=== PATIENT | female | born 1970 | race Caucasian/White ===

== ENCOUNTER 2018-11-02 18:55 | Emergency (ER) | payer OTHER ==
[2018-11-02 19:39] VITALS: BP 150/82
--- NOTE | 2018-11-02 19:52 | ED ---
Skin Complaint - HPI Summary HPI Summary: 48 yr old with redness, irritation to the left lower abdomen skin. Onset two days ago. No fever or chills. No drainage. Area started as an area of pimple hair follicle on the patient. Pain is moderate. - History of Current Complaint Chief Complaint: UCSkin Time Seen by Provider: 11/02/18 19:41 Stated Complaint: LEFT SIDE SKIN ISSUE Hx Last Menstrual Period: 07/19/16 Pain Intensity: 7 - Allergy/Home Medications Allergies/Adverse Reactions: Allergies Allergy/AdvReac Type Severity Reaction Status Date / Time environmental and seasonal Allergy Congestion Uncoded 11/02/18 19:31 latex Allergy Hives Uncoded 11/02/18 19:31 Home Medications: Home Medications Albuterol HFA INHALER* [Ventolin HFA Inhaler*] 1 - 2 puff INH Q4H PRN 11/02/18 [ History Confirmed 11/02/18] QUEtiapine TAB* [Seroquel 25 MG TAB*] 25 mg PO TID 11/02/18 [History Confirmed 11/02/18] Venlafaxine HCl 75 mg PO DAILY 11/02/18 [History Confirmed 11/02/18] PMH/Surg Hx/FS Hx/Imm Hx Endocrine/Hematology History: Denies: Hx Diabetes Cardiovascular History: Reports: Hx Hypertension Denies: Hx Pacemaker/ICD Respiratory History: Reports: Hx Chronic Obstructive Pulmonary Disease (COPD) Denies: Hx Asthma Sensory History: Denies: Hx Hearing Aid Psychiatric History: Denies: Hx Panic Disorder - Surgical History Surgery Procedure, Year, and Place: TUBAL LIGATION. breast biopsies Infectious Disease History: No Infectious Disease History: Denies: Hx Clostridium Difficile, Hx Hepatitis, Hx Human Immunodeficiency Virus (HIV), Hx of Known/Suspected MRSA, Hx Shingles, Hx Tuberculosis, Hx Known/ Suspected VRE, Hx Known/Suspected VRSA, History Other Infectious Disease, Traveled Outside the [place] in Last 30 Days - Family History Known Family History: Positive: None - neg for HTN Negative: Hypertension - Social History Occupation: Employed Full-time Alcohol Use: Occasionally Substance Use Type: Reports: Marijuana, Prescribed Smoking Status (MU): Heavy Every Day Tobacco Smoker Type: Cigarettes Amount Used/How Often: 1 ppd Length of Time of Smoking/Using Tobacco: started at age 15 Review of Systems Constitutional: Negative Positive: Rash All Other Systems Reviewed And Are Negative: Yes Physical Exam Triage Information Reviewed: Yes Vital Signs On Initial Exam: Initial Vitals Temp Pulse Resp BP Pulse Ox 99.4 F 89 16 150/82 96 11/02/18 19:35 11/02/18 19:35 11/02/18 19:35 11/02/18 19:35 11/02/18 19:35 Vital Signs Reviewed: Yes Appearance: Positive: Well-Appearing, No Pain Distress Skin: Positive: Warm, Skin Color Reflects Adequate Perfusion, Other - patch of cellulitis, redness with center pimple on lower left quadrant of abdomen. No fluctuance no drainage. Head/Face: Positive: Normal Head/Face Inspection Eyes: Positive: EOMI, FAYE ENT: Positive: Normal ENT inspection, Pharynx normal Neck: Positive: Nontender Respiratory/Lung Sounds: Positive: Clear to Auscultation, Breath Sounds Present Cardiovascular: Positive: RRR. Negative: Murmur Abdomen Description: Positive: Nontender Musculoskeletal: Positive: Strength/ROM Intact Neurological: Positive: Sensory/Motor Intact, Alert, Oriented to Person Place, Time, CN Intact II-III, Normal Gait, Speech Normal Psychiatric: Positive: Normal Diagnostics - Vital Signs Vital Signs Temp Pulse Resp BP Pulse Ox 11/02/18 19:35 99.4 F 89 16 150/82 96 - Laboratory Lab Statement: Any lab studies that have been ordered have been reviewed, and results considered in the medical decision making process. Course/Dx - Course Course Of Treatment: 48 yr old with cellulitis lower left abdominal wall. Rx with Bactrim DS. FU with PMD> - Diagnoses Provider Diagnoses: Hypertension, Cellulitis Discharge - Sign-Out/Discharge Documenting (check all that apply): Patient Departure All imaging exams completed and their final reports reviewed: No Studies - Discharge Plan Condition: Good Disposition: HOME Prescriptions: Sulfamethox/Trimethoprim DS* [Bactrim DS 800/160 TAB*] 1 tab PO BID #20 tab Patient Education Materials: Cellulitis (ED), Hypertension (ED) Referrals: Eileen Mares PA [Primary Care Provider] - 4 Days - Billing Disposition and Condition Condition: GOOD Disposition: Home
== END 2018-11-02 19:59 | disposition home or self-care (01) ==
LOC: UCCORT 18:55
DX: L03.311 Cellulitis of abdominal wall (principal); I10 Essential (primary) hypertension; J44.9 Chronic obstructive pulmonary disease, unspecified; F17.210 Nicotine dependence, cigarettes, uncomplicated; Z91.09 Other allergy status, other than to drugs and biological substances; Z91.040 Latex allergy status
CPT/HCPCS: 99212; G0463

== ENCOUNTER 2019-12-01 08:02 | Emergency (ER) | payer OTHER ==
--- OUTSIDE RECORDS SUMMARY | 2019-12-01 08:07 | XMS REPORT | Continuity of Care Document ---
:1970 External Reference #:[id number] Author Name ASH Brink (transmitted by agent of provider Melinda Mcgarry) Address [address] 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 Social History Type Date Description Comments Sex Unknown Tobacco Use Start: Unknown Heavy tobacco smoker (more than 10 cigarettes/day) Allergies, Adverse Reactions, Alerts Active Allergies Reaction Severity Comments Date NKDA 02/05/2019 Latex Hives 02/05/2019 Seasonal 02/05/2019 Medications Active Medications SIG Qnty Indications Ordering Provider Date Compression Stockings 1Pair I83.892 Syed Espitia 02/05/2019 Wear Daily For 6 Months 20-30MMHG Thigh High Misc Pramipexole Take 1 2 Unknown Dihydrochloride Tablets By 0.25mg Mouth Every Tablets Evening For Leg Cramp Venlafaxine HCL ER Take One Unknown 75mg Caps Capsule By ER 24HR Mouth Every Day Quetiapine Fumarate Take 1 2 Tablet Unknown 25mg By Mouth In The Tablets Morning as Needed And Take One Tablet AT Bedtime Propranolol HCL Unknown 60mg Tablets Hydrocortisone Valerate Apply Thin Unknown 0.2% Layer To Itchy Cream Rash 2 3 Times A Day as Needed Omeprazole Take One Unknown 20mg Capsules DR Capsule By Mouth Every Day Proair HFA prn Unknown 108(90Base) mcg/Act Aerosol Cetirizine HCL Take One Tablet Unknown 10mg Tablets By Mouth Every Evening Methotrexate Take 4 Tablets Unknown 2.5mg Tablets By Mouth Every 7 Days Folic Acid Take One Tablet Unknown 1mg Tablets By Mouth Every Day History Medications Gabapentin take 1 tablet by 1tabs I83.892 Syed Espitia 05/13/2019 - 600mg mouth 1 hour 07/01/2019 Tablets prior to your procedure arrival time Immunizations CPT Code Status Date Vaccine Lot # [id number] Refused 05/13/2019 Influenza Vaccine 11131-009-18 Vital Signs Date Vital Result Comment 10/03/2019 10:05am Height 63 inches 5'3" Weight 146.00 lb BP Systolic 144 mmHg BP Diastolic 88 mmHg BMI (Body Mass Index) 25.9 kg/m2 Heart Rate 70 /min Respiratory Rate 18 /min 08/29/2019 10:43am Height 63 inches 5'3" Weight 146.00 lb BP Systolic 144 mmHg BP Diastolic 82 mmHg BMI (Body Mass Index) 25.9 kg/m2 Heart Rate 75 /min Respiratory Rate 18 /min Results Description No Information Available Procedures Date Code Description Status 10/03/2019 60997 Injection Sclerosing Solution Multiple Veins Same Leg Completed 08/29/2019 91946 Injection Sclerosing Solution Multiple Veins Same Leg Completed 07/01/2019 61139 Duplex Scan Extremity Veins, Unilateral Or Limited Study Completed 06/03/2019 99289 Duplex Scan Extremity Veins, Unilateral Or Limited Study Completed 05/29/2019 42287 Unlisted Procedure, Vascular Surg Completed 05/29/2019 36042 Endovenus Therapy Radiofreq Completed Medical Devices Description No Information Available Encounters Type Date Location Provider Dx Diagnosis Office Visit 05/13/2019 [facility] Syed Espitia I83.892 Varicose veins of l 10:30a low extrem with other complications Z22.322 Carrier or suspected carrier of methicillin resis staph Z68.26 Body mass index (BMI) 26.0-26.9, adult Assessments Date Code Description Provider 10/03/2019 I83.892 Varicose veins of left lower extremity with ASH Brink other complications 10/03/2019 Z68.25 Body mass index (BMI) 25.0-25.9, adult ASH Brink 08/29/2019 I83.892 Varicose veins of left lower extremity with ASH Brink other complicati 08/29/2019 Z68.25 Body mass index (BMI) 25.0-25.9, adult ASH Brink 07/01/2019 I83.892 Varicose veins of left lower extremity with Naty Sedrick, CYLINDER DIE MACHINE HELPER other complicati 07/01/2019 Z68.26 Body mass index (BMI) 26.0-26.9, adult Naty Sedrick, CYLINDER DIE MACHINE HELPER 06/03/2019 I83.892 Varicose veins of left lower extremity with Naty Sedrick, CYLINDER DIE MACHINE HELPER other complicati 06/03/2019 Z22.322 Carrier or suspected carrier of Methicillin Naty Sedrick, CYLINDER DIE MACHINE HELPER resistant Staphylococcus aureus 05/29/2019 I83.892 Varicose veins of left lower extremity with Syed Espitia other complicati 05/29/2019 Z22.322 Carrier or suspected carrier of Methicillin Espitia, Syed resistant Staphylococcus aureus 05/13/2019 I83.892 Varicose veins of left lower extremity with Espitia, Syed other complicati 05/13/2019 Z22.322 Carrier or suspected carrier of Methicillin Espitia, Syed resistant Staphylococcus aureus 05/13/2019 Z68.26 Body mass index (BMI) 26.0-26.9, adult Syed Espitia Plan of Treatment Future Appointment(s):10/31/2019 10:00 am - [facility]ink [facility] Functional Status Description No Information Available Mental Status Description No Information Available Referrals Refer to Dr Reason for Referral Status Appt Date Syed Espitia M.D. LEFT LEG SCLERO Created [address] [place] [address] [address] [place] [address] [phone] Syed Espitia M.D. LEFT LEG SURGERY Created [address] [place] [address] [address] [place], [place] [id number] [phone]
--- OUTSIDE RECORDS SUMMARY | 2019-12-01 08:07 | XMS REPORT | Continuity of Care Document ---
:1970 External Reference #:[id number] Author Name ASH Jordan (transmitted by agent of provider Sandee Linn) Address [address] [place] [address] Care Team Providers Name Role Phone Eileen Mares RPA - Medical Care Team Information Wrapper Operator Vinayak Houston MD - Care Team Information Wrapper Operator [phone] Internal Medicine Katarina Garcia M.D. - Rheumatology Care Team Information Wrapper Operator Problems Active Problems Provider Date Mood disorder Eileen Mares PA Onset: 01/16/2019 Personality disorder Eileen Mares PA Onset: 01/16/2019 Psoriasis Eileen Mares PA Onset: 01/16/2019 Vitamin D deficiency Eileen Mares PA Onset: 01/16/2019 Fibromyalgia Eileen Mares PA Onset: 01/16/2019 Psoriatic arthritis Eileen Mares PA Onset: 10/21/2019 Note: tx 2020 Chronic back pain Eileen Mares PA Onset: 01/16/2019 Note: sacroiliitis Degenerative joint disease involving multiple Eileen Mares PA Onset: 12/2018 joints Note: thumbs, cervical/lumbar, S-I joints, knee Essential tremor Eileen Mares PA Onset: 01/16/2019 Note: neck, upper ext Carpal tunnel syndrome Eileen Mares PA Onset: 01/16/2019 Allergic rhinitis Eileen Mares PA Onset: 01/16/2019 Note: RAST 2005 ( mold, grass) Migraine Eileen Mares PA Onset: 01/16/2019 Note: Botox in past Dysfunctional uterine bleeding ASH Jordan Onset: 01/16/2019 Note: 2018 Gastroesophageal reflux disease Eileen Mares, PA Onset: 01/16/2019 Methicillin resistant Staphylococcus aureus Eileen Mares PA Onset: 01/16 infection Note: groin 2019 Mammography abnormal Eileen Mares PA Onset: 01/14/2019 Note: dense breasts, microcalcifications Uterine leiomyoma Eileen Mares, PA Onset: 01/14/2019 Note: u/s 2018 Cigarette smoker Eileen Mares PA Onset: 04/16/2019 Varicose veins of lower extremity Eileen Mares, PA Onset: 05/28/2019 Essential hypertension Eileen Mares PA Onset: 07/24/2019 Social History Type Date Description Comments Sex Unknown Tobacco Use Start: Unknown Since ~26 yrs old ETOH Use Current Alcohol Use Socially on weekends Tobacco Use Start: Unknown Heavy tobacco smoker (more About 1ppd than 10 cigarettes/day) Smoking Status Reviewed: 10/31/19 Heavy tobacco smoker (more About 1ppd than 10 cigarettes/day) Exercise Type/Frequency Does not exercise Allergies, Adverse Reactions, Alerts Active Allergies Reaction Severity Comments Date Latex Itching 01/14/2019 Morphine Itching 01/14/2019 Varenicline Tartrate nightmares and sweating 01/14/2019 Gabapentin stomaches 01/14/2019 Buprenorphine Itching Due To Adhesive 01/14/2019 Bactrim Nausea 01/14/2019 Medications Active Medications SIG Qnty Indications Ordering Date Provider Penicillin V Potassium 1 tab by mouth 30tabs K02.9 Corona 10/31/2019 three times a day MD Alden 500mg Tablets Methotrexate 8 tablets by Celso, 09/18/2019 2.5mg mouth once per MD Vinayak Tablets week Folic Acid 1 by mouth every Sprague-Karuna, 09/18/2019 1mg Tablets day MD Vinayak Incruse Ellipta 1 inhalation 90units J44.9 Corona 07/24/2019 every 24 hours MD Alden 62.5mcg/Inh Aerosol Irbesartan 1 by mouth every 90tabs I10 Corona 07/24/2019 75mg Tablets day MD Alden Mometasone Furoate Thin layer to 45gm Corona 05/30/2019 0.1% hand rash tid MD Alden Ointment Vitamin D3 Super 1 by mouth every 90caps E55.9 Corona 05/28/2019 Strength day MD Alden 50mcg (2000 Ut) Capsules Albuterol Sulfate HFA inhale one to two 18units 05/25/2019 puffs by mouth MD Alden 108(90Base) mcg/Act every 4 hours as Aerosol needed Anusol-HC for by way of 30gm K58.2 04/16/2019 2.5% Cream rectum use twice MD Alden a day Zyrtec Allergy take one cap (or 30caps L29.9 Corona 04/16/2019 10mg tablet) by mouth MD Alden Capsules in the evening Omeprazole 1 by mouth every 90caps 01/14/2019 20mg Capsules day MD ASH Ruano Quetiapine Fumarate 1/2 tab by mouth 135tabs 01/14/2019 25mg in am as needed MD Alden Tablets and 1/2 to 1 tab at at bedtime Fluticasone Propionate 2 sprays each 16units 01/14/2019 nostril daily as MD Alden 50mcg/Act Suspension needed Pramipexole 1-2 tabs by mouth 180tabs G47.62 01/14/2019 Dihydrochloride at bedtime MD Alden 0.25mg Tablets Venlafaxine HCL ER 1 by mouth every 90caps Corona 01/14/2019 75mg day MD Alden Caps ER 24HR Propranolol HCL ER 1 cap by mouth 90caps Corona 12/27/2018 60mg every day MD Alden Caps ER 24HR History Medications Celecoxib 1 cap by mouth 30caps M06.4 Corona Ruano, 07/24/2019 - 200mg every day with 10/31/2019 Capsules food as needed pain Medications Administered in Office Medication SIG Qnty Indications Ordering Provider Date Records Fee ASH Jordan 06/18/2019 Injection Records Fee Corona Ruano MD 03/05/2019 Injection Records Fee ASH Jordan 02/08/2019 Injection Immunizations CPT Code Status Date Vaccine Reaction Lot # [id number] Given 07/24/2019 Influ Virus Vaccine, risks and benefits Flu>3yr/ Quadrivalent, Split discussed [id number] Virus, [place] [address] Given 07/19/2018 Influenza Virus Vaccine, Quadrivalent, Split, Preservative Free 66032 Given 07/22/2011 Tdap - Tetanus/Diptheria/Acellu lar Pertussis Vital Signs Date Vital Result Comment 10/31/2019 11:35am Height 63 inches 5'3" Weight 150.06 lb Heart Rate 78 /min BP Systolic Sitting 122 mmHg BP Diastolic Sitting 70 mmHg Body Temperature 98.9 F O2 % BldC Oximetry 98 % BMI (Body Mass Index) 26.6 kg/m2 07/24/2019 10:28am Weight 146.25 lb Heart Rate 68 /min BP Systolic 152 mmHg BP Diastolic 90 mmHg Body Temperature 99.1 F O2 % BldC Oximetry 99 % Results Description No Information Available Procedures Date Code Description Status 10/09/2019 32820 Destruction Of Benign Lesions Any Method 1-14 lesions Completed 08/27/2019 96410 Destruction Of Benign Lesions Any Method 1-14 lesions Completed 01/28/2019 25205740 Mammogram Completed 10/19/2017 16399689 Mammogram Completed Medical Devices Description No Information Available Encounters Type Date Location Provider Dx Diagnosis Office Visit 10/31/2019 [facility] Eileen L40.50 Arthropathic 11:30a ASH Mares psoriasis, unspecified K02.9 Dental caries, unspecified F39 Unspecified mood [affective] disorder G47.62 Sleep related leg cramps M79.7 Fibromyalgia K12.2 Cellulitis and abscess of mouth Office Visit 08/27/2019 11:20a [facility] Dermatology AT Tyson Leo MD B86 Scabies [place] B07.0 Plantar wart L53.8 Other specified erythematous conditions R23.8 Other skin changes Z78.9 Other specified health status Office Visit 07/24/2019 10:30a [facility] Primary Eileen M06.4 Inflammatory Care ASH Mares polyarthropathy M79.7 Fibromyalgia L30.1 Dyshidrosis [pompholyx] R25.1 Tremor, unspecified F39 Unspecified mood [affective] disorder J44.9 Chronic obstructive pulmonary disease, unspecified Z23 Encounter for immunization I10 Essential (primary) hypertension G56.03 Carpal tunnel syndrome, bilateral upper limbs Office Visit 05/28/2019 2:00p Duplicating Machine Operator Primary Eileen E55.9 Vitamin D Care [place], [place] deficiency, unspecified R79.82 Elevated C-reactive protein (CRP) M79.7 Fibromyalgia G56.03 Carpal tunnel syndrome, bilateral upper limbs L30.1 Dyshidrosis [pompholyx] R25.1 Tremor, unspecified F39 Unspecified mood [affective] disorder Assessments Date Code Description Provider 10/31/2019 L40.50 Arthropathic psoriasis, unspecified Eileen Britton, PA 10/31/2019 K02.9 Dental caries, unspecified Eileen Britton, PA 10/31/2019 F39 Unspecified mood [affective] disorder Eileen Britton, PA 10/31/2019 G47.62 Sleep related leg cramps Eileen Britton, PA 10/31/2019 M79.7 Fibromyalgia Eileen Britton, PA 10/31/2019 K12.2 Cellulitis and abscess of mouth Eileen Britton, PA 10/09/2019 B07.0 Plantar wart Tyson Leo MD 10/09/2019 B07.0 Plantar wart Reginald Rose, DO 10/09/2019 L53.8 Other specified erythematous conditions Reginald Rose , DO 10/09/2019 Z78.9 Other specified health status Reginald Rose, DO 10/09/2019 R23.8 Other skin changes Reginald Rose, DO 08/27/2019 B86 Scabies Tyson Leo MD 08/27/2019 B07.0 Plantar wart Tyson Leo MD 08/27/2019 L53.8 Other specified erythematous conditions Tyson Leo MD 08/27/2019 R23.8 Other skin changes Tyson Leo MD 08/27/2019 Z78.9 Other specified health status Tyson Leo MD 07/24/2019 M06.4 Inflammatory polyarthropathy Eileen Britton, PA 07/24/2019 M79.7 Fibromyalgia Eileen Britton, PA 07/24/2019 L30.1 Dyshidrosis [pompholyx] Eileen Britton, PA 07/24/2019 R25.1 Tremor, unspecified Eileen Britton, PA 07/24/2019 F39 Unspecified mood [affective] disorder Eileen Britton, PA 07/24/2019 J44.9 Chronic obstructive pulmonary disease, Eileen Mares PA unspecified 07/24/2019 Z23 Encounter for immunization ASH Jordan 07/24/2019 I10 Essential (primary) hypertension Eileen Mares, PA 07/24/2019 G56.03 Carpal tunnel syndrome, bilateral upper Eileen Suzan, PA limbs 05/28/2019 E55.9 Vitamin D deficiency, unspecified Eileen Mares, PA 05/28/2019 R79.82 Elevated C-reactive protein (CRP) Eileen Mares, PA 05/28/2019 M79.7 Fibromyalgia Eileen Mares, PA 05/28/2019 G56.03 Carpal tunnel syndrome, bilateral upper Eileen Suzan, PA limbs 05/28/2019 L30.1 Dyshidrosis [pompholyx] Eileen Mares, PA 05/28/2019 R25.1 Tremor, unspecified Eileen Mares, PA 05/28/2019 F39 Unspecified mood [affective] disorder ASH Jordan Plan of Treatment Future Appointment(s):03/02/2020 11:30 am - ASH Jordan at [facility] Primary Care10/31/2019 - Eileen Mares PAL40.50 Arthropathic psoriasis, unspecifiedComments:Following with Dr Manley tx: MTX 20mg weekly, Folic acid 1mg oaminZ34.9 Dental caries, unspecifiedNew Medication:Penicillin V Potassium 500 mg - 1 tab by mouth three times a dayComments:Has fear of dental proceduresWill treat with Pen VKDiscussed treatment for anxiety prior to visit todentist, will call our [id number] Unspecified mood [affective] disorderComments :Continue current medication(s): Venlafaxine ER 75mg daily, Quetiapine 1/2 tab q AM prn & 1/2-1 tab qhs Has been stableFollow up:4 nvbvzkF69.62 Sleep related leg npspwbH04.7 HifpbkkxfleaO56.2 Cellulitis and abscess of mouthComments:Treat with PCN Functional Status Description No Information Available Mental Status Description No Information Available Referrals Refer to Reason for Referral Status Appt Date Garcia, Jianghong, M.D. Referral to [place] office, Received Complete 09/18/2018 Rheumatology Elevated C-RP Fam hx RA Daily joint pain You are on a cancellation list for this office as well. Please arrive at the time listed on your referral, this is your check in time. Please be sure to bring your insurance cards & photo ID as well as any copayment associated with the insurance. If you have any questions or concerns, please feel free to contact [facility] @ [phone]. Thank you. [address] [place] [address] [phone] Tyson Leo MD Hand eczema/dyshydrosis. Please Received Complete 2019 arrive at the time listed on your referral, this is your check in time. Please be sure to bring your insurance cards & photo ID as well as any copayment associated with the insurance. If you have any questions or concerns, please feel free to contact [facility] @ [phone]. Thank you. [address] [place] [address] [phone]
--- OUTSIDE RECORDS SUMMARY | 2019-12-01 08:07 | XMS REPORT | Summary of Care ---
:1970 Author Organization [facility] Address [address] [place] [address] Care Team Providers Name Role Phone Eileen Mares Primary Care Provider Reason for Visit Reason Comments Follow-up Encounter Details Date Type Department Care Team Description 10/16/2019 Office Visit Fifi Houston, Psoriasis arthropathica ( Primary Dx); Rheumatology MD Vinayak High risk medication use; [address] Primary osteoarthritis of both first carpometacarpal joints [place], [facility] [id number] [address] [place] [address] [phone] Allergies Active Allergy Reactions Severity Noted Date Comments Buprenorphine 07/21/2015 Varenicline 07/24/2019 Gabapentin 07/24/2019 Latex 07/21/2015 Morphine And Related 07/21/2015 Adhesive Tape 07/21/2015 documented as of this encounter (statuses as of 10/17/2019) Medications Medication Sig Dispensed Refills Start End Date Status Date sumatriptan Take 100 mg 0 Active (IMITREX) 25 MG by mouth as tabletIndications: needed for Migraine, May repeat Migraine. as needed Indications: Migraine Headache, May repeat as needed fluticasone (FLOVENT Inhale 1 puff 0 Active DISKUS) 50 MCG/BLIST into the diskus inhaler lungs Two Times Daily. Ergocalciferol Take 1 tablet 0 Active (VITAMIN D2 PO) by mouth daily. chlorthalidone TAKE ONE 5 Active (HYGROTON) 25 MG TABLET BY 7 tablet MOUTH EVERY DAY gabapentin Take 1 90 capsule 11 Active (NEURONTIN) 300 MG capsule by 7 capsule mouth Three times daily Albuterol Sulfate Inhale 2 0 Active HFA 108 (90 Base) puffs into MCG/ACT Inhalation the lungs Aerosol Solution every 6 (six) (PROVENTIL hours as HFA;VENTOLIN HFA) needed for Wheezing Cetirizine HCl 10 MG Take 10 mg by 0 Active Oral Tablet (ZYRTEC) mouth daily Omeprazole 20 MG Take 20 mg by 0 Active Oral Capsule Delayed mouth daily Release (PriLOSEC) QUETIAPINE FUMARATE Take 25 mg by 0 Active PO mouth Two times daily as needed PRAMIPEXOLE Take 0.25 mg 0 Active DIHYDROCHLORIDE PO by mouth nightly Venlafaxine HCl ER Take 75 mg by 0 Active 75 MG Oral Capsule mouth daily Extended Release 24 Hour (EFFEXOR-XR) Propranolol HCl ER Take 60 mg by 0 Active 60 MG Oral Capsule mouth daily Extended Release 24 Hour (INDERAL LA) Irbesartan 75 MG 0 Active Oral Tablet (AVAPRO) 0 Folic Acid 1 MG Oral Take 1 tablet 30 tablet 11 09/16/19 Active Tablet (FOLVITE) by mouth 0 21 daily Methotrexate 2.5 MG Take 6 24 tablet 3 11/15/19 Active Oral Tablet tablets by 0 20 mouth every 7 (seven) days Methotrexate 2.5 MG Take 4 16 tablet 2 10/16/19 Discontinued Oral Tablet tablets by 0 20 (Reorder) mouth every 7 (seven) days documented as of this encounter (statuses as of 10/17/2019) Active Problems Problem Noted Date Chronic arthritis 09/19/2019 Psoriasis 09/19/2019 Fibromyalgia affecting multiple sites 12/19/2016 documented as of this encounter (statuses as of 10/17/2019) Social History Tobacco Use Types Packs/Day Years Used Date Heavy Tobacco Smoker Cigarettes 1 20 Smokeless Tobacco: Never Used Alcohol Use Drinks/Week oz/Week Comments Yes occasional Sex Assigned at Date Recorded Not on file Job Start Date Occupation Industry Not on file Not on file Not on file Travel History Travel Start Travel End No recent travel history available. documented as of this encounter Last Filed Vital Signs Vital Sign Reading Time Taken Comments Blood Pressure 166/92 10/16/2019 10:12 AM EST Pulse 71 10/16/2019 10:12 AM EST Temperature 36.2 10/16/2019 10:12 AM EST C (97.2 F) Respiratory Rate 16 10/16/2019 10:12 AM EST Oxygen Saturation 98% 10/16/2019 10:12 AM EST Inhaled Oxygen Concentration - - Weight 68.5 kg (151 lb) 10/16/2019 10:12 AM EST Height 160 cm (5' 3") 10/16/2019 10:12 AM EST Body Mass Index 26.75 10/16/2019 10:12 AM EST documented in this encounter Progress Notes Vinayak Houston MD - 10/16/2019 10:15 AM EST Subjective: Patient ID: Carmencita Dee is a 49 y.o. female. She was initially seen 4 weeks ago. At that time, she presented with inflammatory arthritis, likelypsoriatic arthritis. I started her on methotrexate 4 tablets per week, folic acid 1 mg per day. She had inflammatory low back pain. She has been taking the medication regularly. She does not have significant side effects. She notices partial improvement of her symptoms. She is tolerating it well. Did blood work at the time of her initial appointment that showed normal LFTs, normal creatinine, normal CBC with diff, elevated CRP at 9.8 mg/L. I did x-rays of her hands which as per my read showed CMC osteoarthritis ? erosion 4th MCP of the right hand. I did x-rays of her lumbar spine which as per my read shows facet arthropathy from L3 to L4 through L5-S1. I did x-rays of her SI joints whichas per my read show sacroiliitis in the right SI joint. Her rheumatologic review of systems is otherwise unremarkable. In her musculoskeletal exam, I did not an appreciate significant synovitis today. She does have tenderness in the CMC joint. ASSESSMENT: 1. Psoriatic arthritis, seems to be slowly improving with methotrexate, possible axial involvement given sacroiliitis in the right sacroiliac joint. 2. Osteoarthritis, carpometacarpal joints bilaterally. 3. Fibromyalgia. 4. HLA B27 positive. PLAN: 1. Increase methotrexate to 6 tabs per week. Continue folic acid 1 mg per day. 2. Routine labs today to assess for methotrexate toxicity. 3. Follow-up appointment in 8 weeks. If no significant improvement, will consider TNF inhibitors. HPI Carmencita has a past medical history of Anxiety, Arthritis, Depression, Fibromyalgia, Headache, Herniated disc, cervical, Low back pain, and Psoriasis. Carmencita has a past surgical history that includes Tubal ligation and Breast biopsy. Her family history includes Alcohol abuse in her father and mother; Cancer in her father; Hypertension in her mother. Carmencita reports that she has been smoking cigarettes. She has a 20.00 pack- year smoking history. She has never used smokeless tobacco. She reports current alcohol use. No history on file for drug. Carmencita has a current medication list which includes the following prescription( s): albuterol, cetirizine, chlorthalidone, ergocalciferol, fluticasone, folic acid, gabapentin, irbesartan, methotrexate,omeprazole, pramipexole dihydrochloride, propranolol, quetiapine fumarate, sumatriptan, and venlafaxine. Carmencita is allergic to buprenorphine; chantix [varenicline]; gabapentin; latex; morphine and related; and tape [adhesive tape]. Review of Systems Constitutional: Negative. HENT: Negative. Eyes: Negative. Respiratory: Negative. Cardiovascular: Negative. Gastrointestinal: Negative. Endocrine: Negative. Genitourinary: Negative. Musculoskeletal: Positive for arthralgias, back pain and joint swelling. Skin: Negative. Allergic/Immunologic: Negative. Neurological: Negative. Hematological: Negative. Psychiatric/Behavioral: Negative. Objective: Physical Exam Vitals signs reviewed. Constitutional: Appearance: She is well-developed. HENT: Head: Normocephalic and atraumatic. Eyes: Conjunctiva/sclera: Conjunctivae normal. Neck: Thyroid: No thyromegaly. Trachea: No tracheal deviation. Cardiovascular: Rate and Rhythm: Normal rate and regular rhythm. Pulmonary: Effort: Pulmonary effort is normal. No respiratory distress. Musculoskeletal: General: Tenderness present. No swelling. Skin: General: Skin is warm and dry. Neurological: Mental Status: She is alert and oriented to person, place, and time. documented in this encounter Plan of Treatment Date Type Specialty Care Team Description 12/10/2019 Office Visit Rheumatology Vinayak Houston MD [address] [place] [address] [phone] Health Maintenance Due Date Last Done Comments MMR Vaccines (1 of 1 - Standard 1972 series) Varicella Vaccines (1 of 2 - 1972 2-dose childhood series) Pneumococcal Vaccine: Pediatrics 1977 (0 to 5 Years) and At-Risk Patients (6 to 64 Years) (1 of 1 - PPSV23) DTaP,Tdap,and Td Vaccines (1 - 1978 Tdap) HIV Screening 1984 Cervical Cancer Screening 5 years 1992 Influenza Vaccine 05/14/2019 Pneumococcal Vaccine: 65+ Years (1 2036 of 2 - PCV13) HIB Vaccines Aged Out No longer eligible based on patient's age to complete this topic Hepatitis A Vaccines Aged Out No longer eligible based on patient's age to complete this topic Hepatitis B Vaccines Aged Out No longer eligible based on patient's age to complete this topic IPV Vaccines Aged Out No longer eligible based on patient's age to complete this topic documented as of this encounter Procedures Procedure Name Priority Date/Time Associated Comments Diagnosis CREATININE WITH GFR Routine 10/16/2019 10:26 High risk Results for this AM EST medication use procedure are in the results section. SEDIMENTATION RATE, Routine 10/16/2019 10:26 High risk Results for this AUTOMATED AM EST medication use procedure are in the results section. CBC AND DIFFERENTIAL Routine 10/16/2019 10:26 High risk Results for this AM EST medication use procedure are in the results section. INFLAMMATORY Routine 10/16/2019 10:26 High risk Results for this C-REACTIVE PROTEIN AM EST medication use procedure are in (CRP) the results section. ALT Routine 10/16/2019 10:26 High risk Results for this AM EST medication use procedure are in the results section. AST Routine 10/16/2019 10:26 High risk Results for this AM EST medication use procedure are in the results section. documented in this encounter Results Sedimentation rate, automated (10/16/2019 10:26 AM EST) Sed Rate - ESR 18 <20 mm/hr [facility] Clin Pathology Specimen EDTA Whole Blood Performing Organization Address City/State/Zipcode Phone Number [facility] CLINICAL PATHOLOGY [address] [place] [address] [facility] Clin [address] [place] [address] Pathology Inflammatory C-Reactive Protein (CRP) (10/16/2019 10:26 AM EST) C Reactive Protein 4.4 <8.0 mg/L [facility] CLINICAL PATHOLOGY Specimen Plasma Performing Organization Address [facility] Phone Number [facility] PATHOLOGY [address] [place] [address] Creatinine with GFR (10/16/2019 10:26 AM EST) Creatinine 0.72 0.50 - 0.90 [facility] mg/dL CLINICAL PATHOLOGY GFR Non >90 >60 [facility] Turkish 2009 CDK-EPI mL/min/1.73m2 CLINICAL PATHOLOGY GFR >90 >60 [facility] 2009 CKD-EPI mL/min/1.73m2 CLINICAL PATHOLOGY Specimen Plasma Performing Organization Address [facility] Phone Number [facility] PATHOLOGY [address] [place] [address] [phone] CBC and Differential (10/16/2019 10:26 AM EST) White Blood Cell 7.2 4 - 10 [facility] 10*3/uL [facility] Clin Pathology Red Blood Cell 4.77 4.1 - 5.3 [facility] 10*6/uL [facility] Pathology Hemoglobin 14.6 11.5 - 15.5 [facility] g/dL [facility] Pathology Hematocrit 43.8 36 - 45 % [facility] Clin Pathology Mean Cell Volume 91.8 80 - 96 fL [facility] Clin Pathology Mean Cell Hemoglobin 30.6 27 - 33 pg [facility] Clin Pathology Mean Cell Hgb Conc 33.3 32.0 - 36.0 [facility] g/dL [facility] Clin Pathology Red Cell Dist Width 13.9 11.5 - 14.5 % [facility] Clin Pathology Platelet Count Platelet Clumps 150 - 400 [facility] Present, 10*3/uL Univ Clin Platelet Count Pathology not Accurate, Platelet Estimate not Possible to Estimate Differential Type Manual Diff [facility] Clin Pathology Neutrophil 71 % [facility] Univ Clin Pathology Lymphocyte 12 % [facility] Univ Clin Pathology Monocyte 12 % [facility] Clin Pathology Eosinophil 2 % [facility] Clin Pathology Abs Neutrophil 5.08 1.8 - 7.0 [facility] 10*3/uL [facility] Clin Pathology Abs Lymphocyte 0.89 (L) 1.2 - 4.0 [facility] 10*3/uL [facility] Clin Pathology Abs Monocyte 0.89 (H) 0 - 0.8 [facility] 10*3/uL [facility] Clin Pathology Abs Eosinophil 0.14 0 - 0.5 [facility] 10*3/uL [facility] Clin Pathology Atypical Lymphocytes 3 % [facility] Clin Pathology Abs Atyp Lymph 0.21 (H) 0 10*3/uL [facility] Clin Pathology Poikilocytosis 1+ [facility] Clin Pathology Specimen EDTA Whole Blood Performing Organization Address [facility] Phone Number [facility] PATHOLOGY [address] [place] [address] [phone] [facility] Clin [address] [place] [address] Pathology AST (10/16/2019 10:26 AM EST) AST/SGO 16 <32 U/L [facility] CLINICAL PATHOLOGY Specimen Plasma Performing Organization Address [facility]/Zipcode Phone Number [facility] PATHOLOGY [address] [place] [address] [phone] ALT (10/16/2019 10:26 AM EST) ALT/SGP 15 <33 U/L [facility] PATHOLOGY Specimen Plasma Performing Organization Address [facility] Phone Number [facility] PATHOLOGY [address] [place] [address] documented in this encounter Visit Diagnoses Diagnosis Psoriasis arthropathica - Primary Psoriatic arthropathy High risk medication use Encounter for long-term (current) use of other medications Primary osteoarthritis of both first carpometacarpal joints Primary localized osteoarthrosis, hand documented in this encounter
[2019-12-01 08:19] VITALS: BP 146/84
--- NOTE | 2019-12-01 08:35 | UC ---
Dental HPI - HPI Summary HPI Summary: Pt presents with c/o swelling and tenderness of right upper gum. Pt states she "has bad teeth" and saw her PCP about dental pain ~ 1 week ago. pt was given RX for PCN and began taking it yesterday. Pt reports the pain is "throbbing". - History of Current Complaint Chief Complaint: UCDentalProblem Stated Complaint: DENTAL COMPLAINT Time Seen by Provider: 12/01/19 08:18 Hx Obtained From: Patient Hx Last Menstrual Period: end october ?: No Onset/Duration: Sudden Onset, Lasting Days, Still Present Severity: Severe Pain Intensity: 10 Aggravating Factor(s): Heat, Cold, Chewing Alleviating Factor(s): Nothing Related History: Swelling - Allergies/Home Medications Allergies/Adverse Reactions: Allergies Allergy/AdvReac Type Severity Reaction Status Date / Time environmental and seasonal Allergy Congestion Uncoded 12/01/19 08:10 latex Allergy Hives Uncoded 12/01/19 08:10 Home Medications: Home Medications Ibuprofen TAB* [Motrin TAB* 600 MG] 600 mg PO Q6H PRN #28 tab 07/24/16 [Rx Confirmed 12/01/19] Albuterol HFA INHALER* [Ventolin HFA Inhaler*] 1 - 2 puff INH Q4H PRN 11/02/18 [ History Confirmed 12/01/19] QUEtiapine TAB* [Seroquel 25 MG TAB*] 25 mg PO TID 11/02/18 [History Confirmed 12/01/19] Venlafaxine HCl 75 mg PO DAILY 11/02/18 [History Confirmed 12/01/19] Clindamycin Cap(NF) [Clindamycin Cap 300 mg Cap(NF)] 300 mg PO Q6H #40 cap 11/30 [Rx] Folic Acid 1 mg PO DAILY 12/01/19 [History Confirmed 12/01/19] Irbesartan 75 mg PO DAILY 12/01/19 [History Confirmed 12/01/19] Methotrexate TAB* 6 tab PO WEEKLY 12/01/19 [History Confirmed 12/01/19] Propranolol 10 mg TAB [Inderal 10 mg TAB] 10 mg PO DAILY 12/01/19 [History Confirmed 12/01/19] predniSONE 10 mg TAB [Deltasone 10 MG TAB*] 30 mg PO DAILY #12 tab 12/01/19 [Rx] PMH/Surg Hx/FS Hx/Imm Hx Previously Healthy: Yes - Surgical History Surgical History: Yes Surgery Procedure, Year, and Place: TUBAL LIGATION. breast biopsies - Family History Known Family History: Positive: None - neg for HTN Negative: Hypertension - Social History Occupation: Disabled Lives: With Family Alcohol Use: Occasionally Substance Use Type: None Smoking Status (MU): Heavy Every Day Tobacco Smoker Type: Cigarettes Amount Used/How Often: 1 ppd Length of Time of Smoking/Using Tobacco: started at age 15 Have You Smoked in the Last Year: Yes Household Exposure Type: Cigarettes Review of Systems All Other Systems Reviewed And Are Negative: Yes Constitutional: Positive: Negative Skin: Positive: Negative Eyes: Positive: Negative ENT: Positive: Dental Pain Respiratory: Positive: Negative Cardiovascular: Positive: Negative Gastrointestinal: Positive: Negative Genitourinary: Positive: Negative Motor: Positive: Negative Neurovascular: Positive: Negative Musculoskeletal: Positive: Negative Neurological/Mental Status: Positive: Negative Psychological: Positive: Negative Is Patient Immunocompromised?: No Physical Exam Triage Information Reviewed: Yes Appearance: Pain Distress Vital Signs: Initial Vital Signs Temp 99.5 F 12/01/19 08:14 Pulse 89 12/01/19 08:14 Resp 17 12/01/19 08:14 BP 146/84 12/01/19 08:14 Pulse Ox 98 12/01/19 08:14 Vital Signs Reviewed: Yes Eye Exam: Normal ENT Exam: Normal Dental: Positive: Gross Decay/Caries @, Dental Fracture @, Abscess @ Neck exam: Normal Respiratory: Positive: No respiratory distress Musculoskeletal Exam: Normal Neurological Exam: Normal Psychological Exam: Normal Skin Exam: Normal Dental Complaint Course/Dx - Course Course Of Treatment: Pt was instructed to discontinue PCN and begin clindamycin - Differential Dx/Diagnosis Differential Diagnosis/Dx: Dental Abscess, Dental Caries Provider Diagnosis: Dental abscess Discharge ED - Discharge Plan Condition: Stable Disposition: HOME Prescriptions: Clindamycin Cap(NF) [Clindamycin Cap 300 mg Cap(NF)] 300 mg PO Q6H #40 cap predniSONE 10 mg TAB [Deltasone 10 MG TAB*] 30 mg PO DAILY #12 tab Patient Education Materials: Dental Abscess (ED) Referrals: Eileen Mares PA [Primary Care Provider] - If Needed Additional Instructions: Please follow up with your dental care provider as soon as possible. - Billing Disposition and Condition Condition: STABLE Disposition: Home
== END 2019-12-01 08:49 | disposition home or self-care (01) ==
LOC: UCCORT 08:02
DX: K04.7 Periapical abscess without sinus (principal); Z91.040 Latex allergy status; F17.210 Nicotine dependence, cigarettes, uncomplicated
CPT/HCPCS: 99212; G0463